=== PATIENT | male | born 1970 | race Caucasian/White ===

== ENCOUNTER 2024-10-29 13:45 | Outpatient (CLI) | payer BC | END 2024-10-29 13:46 | disposition home or self-care (01) | LOC: LABBT 13:45 | PROVIDERS: ATTEND Internal Medicine Cardiovascular Disease | DX: Z01.810 Encounter for preprocedural cardiovascular examination (principal); I48.19 Other persistent atrial fibrillation | CPT/HCPCS: 93005; 93010 ==